=== PATIENT | male | born 2000 | race Two or more races ===

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

== ENCOUNTER 2018-06-11 23:12 | Emergency (ER) | payer OTHER ==
--- NOTE | 2018-06-11 23:21 | EDPHY ---
H & P Stated Complaint: Asthma and cough for 2 days Time Seen by Provider: 06/11/18 23:21 HPI/ROS: HPI CHIEF COMPLAINT: Cough, fever, asthma. HISTORY OF PRESENT ILLNESS: This is a very pleasant 17-year-old male, presents emergency room with 2 days of cough nonproductive, fever, flu-like illness. Patient has underlying history of asthma. He denies any wheezing denies productive cough. Does complain of flu-like illness. Denies any other significant medical history He arrives to the emergency room is noted to be tachycardic at 1:11 a.m., febrile 39.2. Dry cough on exam. Past Medical History: Asthma Past Surgical History: No recent surgery Social History: He denies drugs alcohol tobacco Family History: Noncontributory ROS REVIEW OF SYSTEMS: 10 Systems were reviewed and negative with the exception of the elements mentioned in the history of present illness. Exam Constitutional triage nursing summary reviewed, vital signs reviewed, awake/ alert. Vital signs at triage noted be tachycardic 111, febrile 39.2 Eyes normal conjunctivae and sclera, EOMI, PERRLA. HENT normal inspection, atraumatic, moist mucus membranes, no epistaxis, neck supple/ no meningismus, no raccoon eyes. Respiratory clear to auscultation bilaterally, normal breath sounds, no respiratory distress, no wheezing. Cardiovascular tachycardia, regular rhythm, no murmur, no edema, distal pulses normal. Gastrointestinal soft, non-tender, no rebound, no guarding, normal bowel sounds, no distension, no pulsatile mass. Genitourinary no CVA tenderness. Musculoskeletal no midline vertebral tenderness, full range of motion, no calf swelling, no tenderness of extremities, no meningismus, good pulses, neurovascularly intact. Skin pink, warm, & dry, no rash, skin atraumatic. Neurologic awake, alert and oriented x 3, AAOx3, moves all 4 extremities equally, motor intact, sensory intact, CN II-XII intact, normal cerebellar, normal vision, normal speech. Psychiatric normal mood/affect. Heme/Lymph/Immune no lymphadenopathy. Differential Diagnosis: Includes but is not limited to in a particular order acute flu-like illness, viral syndrome, URI, viral pneumonia, bacterial pneumonia, asthma Medical Decision Making: Plan for this patient IV establishment IV fluid bolus , check basic blood work, chest x-ray two view to rule pneumonia influenza test , DuoNeb breathing treatment, and re-evaluate. Fever control. Re-evaluation: 12:36 a.m. patient re-evaluate is feeling much better. Chest x-ray two view reviewed negative for acute cardiopulmonary disease no pneumonia Patient is influenza a positive. Will be started on Tamiflu he has underlying asthma or lung disease. Sternal Tamiflu. Also discussed return precautions with him he understands return emergency room if develops worsening shortness of breath, fever, vomiting, not doing well. He is comfortable this. Would like to be discharged. Understands where mask. Do not be on public with a mask. Return precautions discussed. Chest x-ray two view reviewed negative for acute cardiopulmonary disease no evidence pneumonia. Source: Patient - Personal History Current Tetanus/Diphtheria Vaccine: Unsure Current Tetanus Diphtheria and Acellular Pertussis (TDAP): Unsure - Medical/Surgical History Hx Asthma: Yes Hx Chronic Respiratory Disease: No Hx Diabetes: No Hx Cardiac Disease: No Hx Renal Disease: No Hx Cirrhosis: No Hx Alcoholism: No Hx HIV/AIDS: No Hx Splenectomy or Spleen Trauma: No Other PMH: asthma - Social History Smoking Status: Never smoked Constitutional: Initial Vital Signs Temperature (C) 39.2 C H 06/11/18 23:15 Heart Rate 111 H 06/11/18 23:15 Respiratory Rate 16 06/11/18 23:15 Blood Pressure 110/68 06/11/18 23:15 O2 Sat (%) 94 06/11/18 23:15 O2 Delivery Mode Room Air Allergies/Adverse Reactions: No Known Allergies Allergy (Verified 06/11/18 23:19) Home Medications: Medication Instructions Recorded Panadol 06/11/18 ZYRTEC 06/11/18 Oseltamivir Phosphate [Tamiflu] 75 mg PO BID #10 capsule 06/12/18 Medical Decision Making - Data Points Laboratory Results: Laboratory Results 06/11/18 23:30 06/11/18 23:30 06/11/18 06/11/18 06/11/18 23:30 23:30 23:30 WBC 8.43 10^3/uL 10^3/uL (3.80-9.50) RBC 5.17 10^6/uL 10^6/uL (4.40-6.38) Hgb 15.1 g/dL g/dL (13.7-17.5) Hct 43.8 % % (40.0-51.0) MCV 84.7 fL fL (81.5-99.8) MCH 29.2 pg pg (27.9-34.1) MCHC 34.5 g/dL g/dL (32.4-36.7) RDW 12.4 % % (11.5-15.2) Plt Count 201 10^3/uL 10^3/uL (150-400) MPV 10.1 fL fL (8.7-11.7) Neut % (Auto) 72.7 % % (39.3-74.2) Lymph % (Auto) 13.0 % L % (15.0-45.0) [place] % (Auto) 12.3 % % (4.5-13.0) Eos % (Auto) 1.5 % % (0.6-7.6) Baso % (Auto) 0.4 % % (0.3-1.7) Nucleat RBC Rel Count 0.0 % % (0.0-0.2) Absolute Neuts (auto) 6.12 10^3/uL 10^3/uL (1.70-6.50) Absolute Lymphs (auto) 1.10 10^3/uL 10^3/uL (1.00-3.00) Absolute Monos (auto) 1.04 10^3/uL H 10^3/uL (0.30-0.80) Absolute Eos (auto) 0.13 10^3/uL 10^3/uL (0.03-0.40) Absolute Basos (auto) 0.03 10^3/uL 10^3/uL (0.02-0.10) Absolute Nucleated RBC 0.00 10^3/uL 10^3/uL (0-0.01) Immature Gran % 0.1 % % (0.0-1.1) Immature Gran # 0.01 10^3/uL 10^3/uL (0.00-0.10) Sodium 138 mEq/L mEq/L (135-145) Potassium 3.7 mEq/L mEq/L (3.5-5.2) Chloride 105 mEq/L mEq/L (97-110) Carbon Dioxide 21 mEq/l L mEq/l (22-31) Anion Gap 12 mEq/L mEq/L (6-14) BUN 15 mg/dL mg/dL (7-23) Creatinine 0.9 mg/dL mg/dL (0.7-1.3) Estimated GFR > 60 Glucose 176 mg/dL H mg/dL (70-100) Calcium 9.1 mg/dL mg/dL (8.5-10.4) Nasal Influenza A PCR FLU A DETECTED H (NEGATIVE) Nasal Influenza B PCR NEGATIVE FOR FLU B (NEGATIVE) Medications Given: Discontinued Medications Albuterol/Ipratropium (Duoneb) 3 ml IH EDNOW ONE Stop: 06/11/18 23:24 Last Admin: 06/11/18 23:37 Dose: 3 ml Sodium Chloride (Ns) 1,000 mls @ 0 mls/hr IV ONCE ONE; Wide Open PRN Reason: Protocol Stop: 06/11/18 23:24 Last Admin: 06/11/18 23:35 Dose: 1,000 mls Ibuprofen (Motrin) 800 mg PO EDNOW ONE Stop: 06/11/18 23:26 Last Admin: 06/11/18 23:37 Dose: 800 mg Departure - Departure Disposition: Home, Routine, Self-Care Clinical Impression: Influenza A Condition: Good Instructions: Influenza (ED) Additional Instructions: 1. Drink lots of fluids stay well-hydrated 2. Tamiflu as prescribed 3. Return emergency room if worsening symptoms includes worsening shortness of breath, fever, vomiting, not doing well Referrals: NONE *PRIMARY CARE P,. [Primary Care Provider] - As per Instructions [facility] [Cl[facility]] - As per Instructions Prescriptions: Oseltamivir Phosphate [Tamiflu] 75 mg PO BID #10 capsule
[2018-06-11] MEDS ORDERED: IPRATROPIUM/ALBUTEROL 3 ML DEYVIAL IH ONE (23:23)
[2018-06-11] MEDS ORDERED: NS 1,000 ML IV ONE (23:23)
[2018-06-11] MEDS ORDERED: IBUPROFEN 800 MG TAB PO ONE (23:25)
[2018-06-11 23:51] LABS: PLATELET COUNT 201 10^3/uL (150-400)
[2018-06-12] MEDS ORDERED: OSELTAMIVIR PHOSPHATE 75 MG CAP PO ONE (00:36)
[2018-06-12 01:07] VITALS: BP 110/69
== END 2018-06-12 01:06 | disposition home or self-care (01) ==
DX: J10.1 Influenza due to other identified influenza virus with other respiratory manifestations (principal); J45.909 Unspecified asthma, uncomplicated; E86.9 Volume depletion, unspecified